=== PATIENT | male | born 1930 | race Caucasian/White ===

== ENCOUNTER → 2019-02-02 | Outpatient (CLI) | payer MEDICARE ==
[~2019-02-02] MED LIST: Coumadin7.5 MG; FINA5; FISH1000 PO; GLUCOSAMINE &1 EACH; MILK THISTLE200 MG PO; Multiple Vitam1 EAC1; TRAV.004OP RIGHTEYE; VITAMIN D5000 UNIT
== END | disposition home or self-care (01) ==
LOC: PLD 15:40 → LAB SHORT 15:40
DX: D48.5 Neoplasm of uncertain behavior of skin (principal)
CPT/HCPCS: 88305

== ENCOUNTER → 2019-03-12 | Outpatient (CLI) | payer MEDICARE ==
[2019-03-12 10:54] LABS: BASOPHILS ABSOLUTE AUTO 0.01 K/mm3 (0.00-0.23); BASOPHILS PERCENT AUTO 0 % (0-2); EOSINOPHILS ABSOLUTE AUTO 0.03 K/mm3 (0.00-0.68); EOSINOPHILS PERCENT AUTO 1 % (0-6); Hematocrit 40.1 % (37.0-53.0); IMMATURE GRAN ABSOLUTE AUTO 0.01 K/mm3 (0.00-0.10); IMMATURE GRAN PERCENT AUTO 0 % (0-1); LYMPHOCYTES ABSOLUTE AUTO 0.81 K/mm3 (0.84-5.20); LYMPHOCYTES PERCENT AUTO 19 % (21-46); MONOCYTES PERCENT AUTO 9 % (4-13); Mean Corpuscular HGB 34.5 pg (26.0-34.0); Mean Corpuscular HGB Conc 34.9 g/dL (31.5-36.5); Mean Corpuscular Volume 99 fL (80-100); Mean Platelet Volume 10.2 fL (9.1-12.4); NEUTROPHILS ABSOLUTE AUTO 3.06 K/mm3 (1.96-9.15); NEUTROPHILS PERCENT AUTO 71 % (41-73); Platelet Count 117 K/mm3 (150-400); RDW Coefficient Variation 14.4 % (11.7-14.2); RDW Standard Deviation 52.7 fL (35.1-46.3); Red Blood Cell Count 4.06 M/mm3 (4.30-5.90); White Blood Cell Count 4.32 K/mm3 (4.00-11.30)
[2019-03-12 11:04] LABS: Alanine Aminotransfer (ALT/SGP 44 U/L (12-78); Albumin, Blood 3.1 g/dL (3.4-5.0); Albumin/Globulin Ratio 0.8 (0.8-1.8); Alk Phos 83 U/L (40-126); Anion Gap 5 mmol/L (6-16); Aspartate Aminotrans (AST/SGOT 55 U/L (12-37); Bilirubin, Total 1.5 mg/dL (0.1-1.0); Blood Urea Nitrogen 28 mg/dL (8-24); Bun/Creatinine Ratio 29.2 (12.0-20.0); CO2, Blood 28 mmol/L (21-32); Calcium, Blood 9.1 mg/dL (8.5-10.1); Chloride, Blood 104 mmol/L (98-108); Creatinine, Blood 0.96 mg/dL (0.60-1.20); Globulin, Blood 3.8 g/dL (2.2-4.0); Glomerular Filtration Rate >60 (60-); Glucose, Blood 117 mg/dL (70-99); Potassium, Blood 4.7 mmol/L (3.5-5.5); Sodium, Blood 137 mmol/L (136-145); Total Protein, Blood 6.9 g/dL (6.4-8.2)
== END | disposition home or self-care (01) ==
LOC: LAB SHORT 10:45 → LAB EV 10:45
PROVIDERS: Physician Assistant
DX: R06.00 Dyspnea, unspecified (principal)
CPT/HCPCS: 80053; 83880; 85025

== ENCOUNTER 2020-01-17 14:18 | Inpatient (IN) | payer MEDICARE ==
[~2020-01-17] VITALS: Ht 182.9 cm; Wt 69.0 kg
[~2020-01-17 14:18] MED LIST changes: -Coumadin7.5 MG; -FINA5; +FINA5 PO; +WARF5 PO
[2020-01-17 14:38] LABS: BASOPHILS ABSOLUTE AUTO 0.01 K/mm3 (0.00-0.23); BASOPHILS PERCENT AUTO 0 % (0-2); EOSINOPHILS PERCENT AUTO 2 % (0-6); Hematocrit 44.4 % (37.0-53.0); Hemoglobin 14.9 g/dL (13.5-17.5); IMMATURE GRAN ABSOLUTE AUTO 0.01 K/mm3 (0.00-0.10); IMMATURE GRAN PERCENT AUTO 0 % (0-1); LYMPHOCYTES ABSOLUTE AUTO 0.77 K/mm3 (0.84-5.20); LYMPHOCYTES PERCENT AUTO 17 % (21-46); MONOCYTES ABSOLUTE AUTO 0.46 K/mm3 (0.16-1.47); MONOCYTES PERCENT AUTO 10 % (4-13); Mean Corpuscular HGB 33.9 pg (26.0-34.0); Mean Corpuscular HGB Conc 33.6 g/dL (31.5-36.5); Mean Corpuscular Volume 101 fL (80-100); Mean Platelet Volume 10.4 fL (9.1-12.4); NEUTROPHILS ABSOLUTE AUTO 3.13 K/mm3 (1.96-9.15); NEUTROPHILS PERCENT AUTO 70 % (41-73); Platelet Count 107 K/mm3 (150-400); RDW Coefficient Variation 15.4 % (11.7-14.2); RDW Standard Deviation 58.2 fL (35.1-46.3); Red Blood Cell Count 4.39 M/mm3 (4.30-5.90); White Blood Cell Count 4.48 K/mm3 (4.00-11.30)
[2020-01-17 15:03] LABS: Source, Urine Clean Catch
[2020-01-17 15:05] LABS: Bilirubin, Urine Neg (Neg); Blood, Urine Neg (Neg); Glucose Qualitative, Urine Neg (Neg); Ketones, Urine 1+ (Neg); Leukocyte Esterase, Urine 1+ (Neg); Nitrite, Urine Neg (Neg); Protein, Urine Neg (Neg); Specific Gravity, Urine 1.025 (1.003-1.022); Urobilinogen, Urine 2+ (Normal)
[2020-01-17 15:10] LABS: Appearance, Urine Clear (Clear); Color, Urine Yellow (P-Yellow)
[2020-01-17 15:10] LABS: Alanine Aminotransfer (ALT/SGP 52 U/L (12-78); Albumin, Blood 2.8 g/dL (3.4-5.0); Albumin/Globulin Ratio 0.7 (0.8-1.8); Alk Phos 91 U/L (50-136); Anion Gap 5 mmol/L (6-16); Aspartate Aminotrans (AST/SGOT 65 U/L (12-37); Bilirubin, Total 1.9 mg/dL (0.1-1.0); Blood Urea Nitrogen 26 mg/dL (8-24); Bun/Creatinine Ratio 28.8 (12.0-20.0); CO2, Blood 27 mmol/L (21-32); Calcium, Blood 8.5 mg/dL (8.5-10.1); Chloride, Blood 108 mmol/L (98-108); Globulin, Blood 3.9 g/dL (2.2-4.0); Glomerular Filtration Rate >60 (60-); Glucose, Blood 98 mg/dL (70-99); Potassium, Blood 4.3 mmol/L (3.5-5.5); Sodium, Blood 140 mmol/L (136-145); Total Protein, Blood 6.7 g/dL (6.4-8.2); Troponin I 0.019 ng/mL (0.000-0.040)
[2020-01-17 15:11] LABS: Mucus Heavy (0-Heavy)
[2020-01-17 15:13] LABS: Calcium Oxalate Crystals Mod /hpf
[2020-01-17 15:14] LABS: Red Blood Cells, Urine 0-2 /hpf (0-2)
[2020-01-17 15:28] LABS: Bacteria Few /hpf; Squamous Epithelial Cells Few /hpf (Few)
[2020-01-17] MEDS ORDERED: WARF5 PO (16:37)
[2020-01-17 16:44] LABS: International Normalized Ratio 2.02; Prothrombin Time Results 20.8 Sec (9.7-11.5)
--- NOTE | 2020-01-17 22:28 | NUR ---
ADMIT NOTE HANDOFF RECEIVED FROM ER NURSE DERECK. PT ARRIVED TO UNIT VIA WHEELCHAIR. PT ORIENTED TO UNIT. CALL BUTTON WITHIN REACH. BED ALARM ON.
--- NOTE | 2020-01-18 04:08 | NUR ---
SHIFT SUMMARY ADMITTED FROM THE ER THIS SHIFT FOR CHF EXACERBATION. FULL CODE. HE IS CALM, BUT SOMEWHAT CONFUSED. UNSTEADY ON HIS FEET, HE SHUFFLES. HE IS WEAK. FOUND TO HAVE A 34 LB WEIGHT LOSS IN THE PAST YEAR ACCORDING TO MEDICAL RECORDS, THE PT DENIED THIS TO ME. RA, CARDIAC DIET, ON WARFARIN -HX: AORTIC VALVE REPLACEMENT. BNP FOUND TO BE ELEVATED ON ADMIT TO 969, TROPONIN WAS NOT ELEVATED. CLASSIFIER REFERAL. HE SOMETIMES USES A FWW AT HOME. 1 ASSIST HERE. HX: BPH, HYPERLIPIDEMIA, JOE'S ESOPHAGUS, DEMENTIA, CHF, CHRONIC GAIT ATAXIA, AFIB, PALMA, ALZHEIMERS. NO NEARBY FAMILY. CALM & COOPERATIVE WITH CARE THIS SHIFT
[2020-01-18 05:22] LABS: BASOPHILS ABSOLUTE AUTO 0.01 K/mm3 (0.00-0.23); BASOPHILS PERCENT AUTO 0 % (0-2); EOSINOPHILS ABSOLUTE AUTO 0.18 K/mm3 (0.00-0.68); EOSINOPHILS PERCENT AUTO 5 % (0-6); Hematocrit 42.6 % (37.0-53.0); Hemoglobin 14.7 g/dL (13.5-17.5); IMMATURE GRAN ABSOLUTE AUTO 0.01 K/mm3 (0.00-0.10); IMMATURE GRAN PERCENT AUTO 0 % (0-1); LYMPHOCYTES ABSOLUTE AUTO 0.96 K/mm3 (0.84-5.20); LYMPHOCYTES PERCENT AUTO 25 % (21-46); MONOCYTES ABSOLUTE AUTO 0.47 K/mm3 (0.16-1.47); MONOCYTES PERCENT AUTO 12 % (4-13); Mean Corpuscular HGB 34.5 pg (26.0-34.0); Mean Corpuscular HGB Conc 34.5 g/dL (31.5-36.5); Mean Corpuscular Volume 100 fL (80-100); Mean Platelet Volume 11.4 fL (9.1-12.4); NEUTROPHILS PERCENT AUTO 57 % (41-73); Platelet Count 84 K/mm3 (150-400); RDW Coefficient Variation 15.4 % (11.7-14.2); RDW Standard Deviation 56.8 fL (35.1-46.3); Red Blood Cell Count 4.26 M/mm3 (4.30-5.90); White Blood Cell Count 3.83 K/mm3 (4.00-11.30)
[2020-01-18 05:43] LABS: International Normalized Ratio 2.3; Prothrombin Time Results 23.5 Sec (9.7-11.5)
[2020-01-18 06:19] LABS: Alanine Aminotransfer (ALT/SGP 48 U/L (12-78); Albumin, Blood 2.7 g/dL (3.4-5.0); Albumin/Globulin Ratio 0.7 (0.8-1.8); Alk Phos 86 U/L (50-136); Anion Gap 3 mmol/L (6-16); Aspartate Aminotrans (AST/SGOT 58 U/L (12-37); Bilirubin, Total 1.8 mg/dL (0.1-1.0); Blood Urea Nitrogen 23 mg/dL (8-24); Bun/Creatinine Ratio 26.1 (12.0-20.0); CO2, Blood 31 mmol/L (21-32); Calcium, Blood 8.4 mg/dL (8.5-10.1); Chloride, Blood 106 mmol/L (98-108); Creatinine, Blood 0.88 mg/dL (0.60-1.20); Globulin, Blood 3.9 g/dL (2.2-4.0); Glomerular Filtration Rate >60 (60-); Glucose, Blood 72 mg/dL (70-99); Potassium, Blood 4.5 mmol/L (3.5-5.5); Sodium, Blood 140 mmol/L (136-145); Total Protein, Blood 6.6 g/dL (6.4-8.2)
--- NOTE | 2020-01-18 11:52 | NUR ---
ECHOCARDIOGRAM COMPLETE
--- NOTE | 2020-01-18 18:15 | NUR ---
NO ACUTE CHANGES. PT CONFUSED BUT COMPLIANT WITH CARES.
--- NOTE | 2020-01-19 05:04 | NUR ---
SHIFT SUMMARY VSS. SLEPT WELL T/O NIGHT. AOX4-COULD ANSWER PLACE, DATE, SELF, PRESIDENT APPROPRIATE DURING ASSESSMENT. HOWEVER PT IS FORGETFUL & CONFUSED @TIMES, DOES NOT USE CALL LIGHT & SETS OFF BED ALARM FREQUENTLY. FOLLOWS DIRECTIONS. SLOW TO ANSWER TO QUESTIONS. DENIES PAIN OR NAUSEA. STATES HE'S HAD DYSPNEA FOR QUITE AWHILE "IT'S NOTHING NEW" & STATES IT'S WORSE W/EXERCISE, DENIES SOB @REST, E/U RESPIRATIONS, SPO2 >90%. HAS +2 BILAT PEDAL EDEMA. BLADDER SCANNED THIS AM PER ORDERS & 318ML IN BLADDER DENIED NEED TO URINATE, HOWEVER PT HAS BEEN UP 3-4 TIMES TO USE RESTROOM. CALL LIGHT IN REACH, WCTM.
[2020-01-19 05:16] LABS: International Normalized Ratio 2.66; Prothrombin Time Results 26.9 Sec (9.7-11.5)
--- NOTE | 2020-01-19 10:39 | NUR ---
WOUND CARE/SLIPPED IN BATHROOM. THIS RN COMPLETED WOUND CARE AFTER PT SLIPPED IN BATHROOM. PT SLIPPED AND HIT HEAD ON HANDLE BAR IN SHOWER. SKIN TEARS OCCURED TO BOTH FOREARMS. PICS TAKEN AND DRESSINGS PLACED. PT L FOOT 4TH TOE NAIL WAS PULLED SLIGHTLY AND STARTED BLEEDING. BANDAID PLACED TO TOE & PIC TAKEN. PT VITALS TAKEN AFTER EVENT. PRIMARY RNBRANDT NOTIFIED OF EVENT AND WOUND CARE THAT WAS COMPLETED. PT WAS OUTSIDE OF SHOWER BEING DRIED OFF AND THEN SLIPPED ONTO THE SHOWER CHAIR. PT AIDE WAS WITH PT DURING EVENT.
--- NOTE | 2020-01-19 11:16 | NUR ---
PT SLIPPED INTO SHOWER CHAIR THIS MORNING WHILE STAFF WAS SHOWERING PT . PICTURES TAKEN OF SKIN TEARS. STAFF LANDED ON CHAIR, NOT FLOOR. PT WAS CLEANED UP AND SKIN ISSUES ADDRESSED AND COVERED .DOCTOR WAS NOTIFIED . PT HAS NO COMPLAINTS AND CONTINUES TO ASK WHEN HE IS GOING HOME AND STATES HE IS ABLE TO TAKE CARE OF HIMSELF.
--- NOTE | 2020-01-19 11:36 | NUR ---
Around 1050 pt was standing up out of the shower and holing onto the walker. I was drying his legs off and he lost his balance. He went backwards and set hard into the shower chair. Nurse notified and vitals taken.
--- NOTE | 2020-01-19 12:16 | NUR ---
Spoke with Dr Nix prior to Pt visit and discussed case. Dr Nix is requesting Palliative Care to contact family to discuss code status and feels Pt is not appropriate to make decisions for himself. Pt sitting in chair upon arrival. Pt is A&OX3 and is unable to verbalize appropriate reason for hospital stay. Pt denies pain and dyspnea at this time. Engaged in therapeutic discusion regarding plan of care. Discussed notes and recommendations from PT. Pt insists that he is safe to live alone. Discussed incidents of falls including moste recent this AM. Pt reports fall was not his fault. Continued therapeutic listening as Pt focuses on wanting to go home. Discussed Advanced Directive on file and health care representatives listed. Pt reports the primary was his late and the alternate is a sister in law. He states he wants his sister Analisa to be his primary and Odalis can remain the alternate. Engaged in discussion regarding life sustaining measures including risk factors. Pt does not respond to discussion and changes subject stating "I just want to go home". As conversation continued it appeared Pt's level of undestaning was questionable. This RN ended visit. Spoke with Bedside RN Barbi and discussed case. Barbi also reports Pt's level of understanding is low and is not appropriate to make decisions. Called and spoke to Analisa who is listed as NOK. Analisa reports her and Odalis (Alternate on Pt's Advanced Directive) are Pt's step sisters. Listened as Analisa reports having discussions with family prior to this phone call with family feeling that Pt's cousin who is only living relative should be making decision. Analisa reports speaking with Pt's cousin Ranjana and she is willing to make decisions. Analisa reports alternate decision maker on AD Odalis is dealing with health problems. Plan is to discuss case with [place] Coordinator Seema to determine most appropriate plan for decision maker.
--- NOTE | 2020-01-19 17:15 | NUR ---
PT REMAINS VERY CONFUSED AND IS NOT ORIENTED TO HIS LIMITATIONS. HE OFTEN WILL GET UP AFTER BEING INSTURCTED TO USE CALL LIGHT. BED ALARM ON. HE IS VERY UNSTABLE ON HIS FEET AND SHOULD NOT BE ALLOWED TO AMBULATE WITHOUT ASSISTANCE. HE IS FRIENDLY, AND PLEASANTY CONFUSED. PT NEEDS SET UP WITH MEAL BUT WILL EAT ALL THAT IS INFRON OF HIM.
--- NOTE | 2020-01-19 18:11 | NUR ---
Spoke with [facility] Supervisor [employer] Seema and discussed case. Discussed family listed as NOK and as healthcare representatives on Advanced Directive. Healthcare representatives have elected to not make decisions for Pt due to being only step related and are defering to Pt's cousin Ranjana Ayala who is Pt's closest living relative. After discussion with Seema spoke with Pt and relayed step sisters request for Ranjana to be decision maker. Pt is agreeable. Called and spoke with Ranjana and updated her on Pt including reason for hospital stay, current condition and recommendations. Discussed code status and POLST. Educated Ranjana on life sustaining measures including risk factors and implications. Ranjana is agreeable to make decision regarding code status and completing POLST. Placed phone on speaker for Palliative Care RN Emma to witness. Discussed choices and educated on each choice. Ranjana chooses DNR for section A, and Limited Interventions for section B and feels this would be in the best interest of Pt. Answered questions and discussed plan of care. Ranjana request to be updated as well. Ranjana reports Pt was having discussions with his niece a few days prior to hospitalization regarding [facility]. No other concerns reported at this time. Ranjana's home phone # [phone], Called and left message with Dr Nix with family's request for Pt to be DNR. Spoke with Bedside CHELSEY Landon and relayed family's wishes for DNR. Barbi will call hospitalist if [facility] doctor does not change order. Plan is for MD to sign POLST and obtain copy for medical records. Palliative Care will remain available.
--- NOTE | 2020-01-19 18:38 | NUR ---
TALKED WITH JAMES IN PALLATIVE CARE, FAMILY MEMBER NORMA HAS DECISION MAKING RIGHTS AND WAS CONTACTED AND MADE PT DNR. DOCTOR ON FOR THE DAY WAS CONTACTED REGARDING THIS CHANGE BUT HAS NOT AT THIS TIME RESPONDED. NIGHT NURSE WILL BE NOTIFIED OF THIS AND HOSPITALIST WILL BE NOTIFIED DURING EXECUTIVE CHAIRMAN TO MAKE THIS CHANGE.
[2020-01-19] MEDS ORDERED: LOVAZA1 GM PO (21:45)
[2020-01-19] MEDS ORDERED: Daily Multiple1 EACH PO (21:45)
[2020-01-19] MEDS ORDERED: COENZYME Q-10 PO (21:46)
[2020-01-19] MEDS ORDERED: Prevacid Soluta30 MG PO (21:47)
[2020-01-19] MEDS ORDERED: FISH OIL PO (21:48)
[2020-01-19] MEDS ORDERED: GLUCOSAMINE CHONDROI PO (21:48)
[2020-01-20 05:06] LABS: International Normalized Ratio 2.68; Prothrombin Time Results 27.1 Sec (9.7-11.5)
--- NOTE | 2020-01-20 06:00 | NUR ---
SHIFT SUMMARY PT IS AN 89 Y/O MALE, ADMITTED FOR CHF EXACERBATION AND CURRENTLY AWAITING SAFE DISCHARGE PLACEMENT. PT IS A&O X 2-3, VERY FORGETFUL AND CONFUSED AT TIMES. PT IS 1PA UP, AND IMPULSIVE. NO COMPLAINTS OF PAIN, NAUSEA OR SOB. VITAL SIGNS STABLE. NO ACUTE CHANGES IN PT CONDITION NOTED. WILL CONTINUE TO MONITOR AND TREAT PER EMAR UNTIL HAND OFF TO DAY SHIFT RN.
--- NOTE | 2020-01-20 15:59 | NUR ---
SHIFT SUMMARY PT IS A/O X 3-4 WITH FORGETFULNESS. HE HAS NO C/O PAIN OR DISCOMFORT. EDEMA REMAINS TO EXTREMITIES AND LASIX HAS BEEN GIVEN ORDERED. PT HAS NO S/S OF ABNORMAL BLEEDING AND DENIES NAUSEA. PHARMACY CONTINUES TO DOSE COUMADIN AND HIS LAST INR WAS 2.68. PT HAS BEEN UP TO THE CHAIR FOR MEALS AND AMBULATES WITH A FWW AND GAIT BELT WITH X 1 ASSIST TO THE TOILET. HE IS ABLE TO MAKE HIS NEEDS KNOWN AND CALLS FOR HELP WHEN NEEDED. CALL LIGHT IS IN REACH.
--- NOTE | 2020-01-21 04:35 | NUR ---
SHIFT SUMMARY: 89 Y/O MALE RESTED COMFORTABLY ALL SHIFT; DENIES PAIN OR NAUSEA; ABLE TO AMBULATE BATHROOM AND BACK X 1 ASSIST VIA WALKER; BED ALARM APPLIED, BED LOW POSITION WITH CALL LIGHT AT SIDE.
[2020-01-21 05:01] LABS: International Normalized Ratio 2.96; Prothrombin Time Results 29.8 Sec (9.7-11.5)
[2020-01-21 05:10] LABS: Anion Gap 1 mmol/L (6-16); Blood Urea Nitrogen 22 mg/dL (8-24); Bun/Creatinine Ratio 22.1 (12.0-20.0); CO2, Blood 31 mmol/L (21-32); Calcium, Blood 8.7 mg/dL (8.5-10.1); Chloride, Blood 103 mmol/L (98-108); Creatinine, Blood 0.99 mg/dL (0.60-1.20); Glomerular Filtration Rate >60 (60-); Glucose, Blood 74 mg/dL (70-99); Potassium, Blood 4.2 mmol/L (3.5-5.5); Sodium, Blood 135 mmol/L (136-145)
--- NOTE | 2020-01-21 08:30 | NUR ---
PT PLEASAANT COOP A/O X3 SOME FORGETFULNESS NOTED IN RN HANDOFF. H/R IRREG. NO MURMER NOTED. NO TELE. LUNGS CLEAR, RESP EASY, UNLABORED. ON R/A. BT X4 LAST BM 2 DAYS. VOIDS CONT INCONT. IN ATTENDS, CLEAN DRY AT THIS TIME. BED IN LOW POSITION, CALL LITE IN REACH, BED ALARM ON FOR SAFETY
--- NOTE | 2020-01-21 16:37 | NUR ---
PT PLEASANT TODAY. DID WALK HALLS TODAY WITH PT/OT. HAS BEEN UP TO EAT MEALS. NO OTHER CONCERNS AT THIS TIME. BED IN LOW POSITION, CALL LITE IN REACH. CALLS APPROP. BED ALARM ON FOR SAFEY
--- NOTE | 2020-01-22 03:53 | NUR ---
SHIFT SUMMARY: 89 Y/O MALE RESTED COMFORTABLY ALL SHIFT; PT ABLE TO TRANSFER AND AMBULATE VIA WALKER TO BATHROOM AND BACK WITH GAIT SLOW AND STEADY X 1 STANDBY ASSIST; PT DENIES PAIN OR NAUSEA; ALERT AND ORIENTED X 2; ABLE TO FOLLOW ALL SIMPLE VERBAL COMMANDS; BED ALARM APPLIED, BED LOW POSITION WITH CALL LIGHT AT SIDE.
[2020-01-22 05:07] LABS: BASOPHILS ABSOLUTE AUTO 0.02 K/mm3 (0.00-0.23); BASOPHILS PERCENT AUTO 1 % (0-2); EOSINOPHILS ABSOLUTE AUTO 0.31 K/mm3 (0.00-0.68); EOSINOPHILS PERCENT AUTO 7 % (0-6); Hematocrit 40.7 % (37.0-53.0); Hemoglobin 13.8 g/dL (13.5-17.5); IMMATURE GRAN PERCENT AUTO 0 % (0-1); LYMPHOCYTES ABSOLUTE AUTO 0.95 K/mm3 (0.84-5.20); LYMPHOCYTES PERCENT AUTO 22 % (21-46); MONOCYTES ABSOLUTE AUTO 0.55 K/mm3 (0.16-1.47); MONOCYTES PERCENT AUTO 13 % (4-13); Mean Corpuscular HGB 33.7 pg (26.0-34.0); Mean Corpuscular HGB Conc 33.9 g/dL (31.5-36.5); Mean Corpuscular Volume 99 fL (80-100); Mean Platelet Volume 10.9 fL (9.1-12.4); NEUTROPHILS ABSOLUTE AUTO 2.51 K/mm3 (1.96-9.15); NEUTROPHILS PERCENT AUTO 58 % (41-73); Platelet Count 100 K/mm3 (150-400); RDW Coefficient Variation 14.8 % (11.7-14.2); RDW Standard Deviation 54.5 fL (35.1-46.3); White Blood Cell Count 4.34 K/mm3 (4.00-11.30)
[2020-01-22 05:18] LABS: International Normalized Ratio 2.59; Prothrombin Time Results 26.3 Sec (9.7-11.5)
--- NOTE | 2020-01-22 18:53 | NUR ---
SUMMARY- PT A/O X3, MILD CONFUSION. PT TOLERATES FOOD AND FLUID. LUNGS CLEAR, NO SOB. UP TO CHAIR FOR MEALS. AMBULATED IN ECKERT TO WINDOW OVER 100 FEET, SLOW AND STEADY WITH WALKER AND GAIT BELT, NO SOB. PT ON ROOM AIR. LE EDEMA +1. VSS. SKIN TEAR L ELBOW AND RW WITH BANDAGE INTACT. CAREGIVER KAYCEE CALLED AND GENERAL UPDATE GIVEN OVER THE PHONE.
--- NOTE | 2020-01-23 04:44 | NUR ---
SHIFT SUMMARY: 89 Y/O MALE RESTED COMFORTABLY IN BED ALL SHIFT; PT ABLE TO AMBULATE VIA WALKER TO BATHROOM WITH GAIT SLOW AND STEADY; WEARING YELLOW FALL GOWN; ALERT AND ORIENTED X 2 AND ABLE TO FOLLOW ALL SIMPLE VERBAL COMMANDS; BED ALARM APPLIED; BED LOW POSITION WITH CALL LIGHT AT SIDE.
[2020-01-23 04:51] LABS: International Normalized Ratio 2.03; Prothrombin Time Results 20.9 Sec (9.7-11.5)
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
--- NOTE | 2020-01-23 19:43 | NUR ---
NO POWERGLIDE IN PT'S ARM, UNAWARE OF DC DATE.
[2020-01-24 04:30] LABS: International Normalized Ratio 2.13; Prothrombin Time Results 21.8 Sec (9.7-11.5)
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
--- NOTE | 2020-01-24 17:59 | NUR ---
SHIFT SUMMARY PT HAS BEEN SLEEPING A LOT OF THE SHIFT. PT UP OOB OFTEN. AMBULATES TO BATHROOM WITH FWW/GAIT BELT. PT ORIENTED X3 BUT IS VERY FORGETFUL AND CONFUSED AT TIMES. NO COMPLAINTS OF PAIN. NO ACUTE CHANGES THIS SHIFT. WAITING FOR PLACEMENT. CALL LIGHT IN REACH AND BED ALARM ON FOR SAFETY. WILL CONTINUE TO MONITOR AND REPORT TO ONCOMING RN.
--- NOTE | 2020-01-25 05:19 | NUR ---
Rn summary: Patient has rested well tonight. He has only gotten up to the BR x1. Pt is up with one assist and a walker. Has a shuffling gait. A/o x2. Pt is stable medically. Awaiting safe placement. Call light in reach but does not usually use it, bed alarm is on. Freq monitoring.
[2020-01-25 08:44] LABS: International Normalized Ratio 2.06; Prothrombin Time Results 21.2 Sec (9.7-11.5)
--- NOTE | 2020-01-25 16:45 | NUR ---
Initial spiritual care note: Mr. Sidhu said very little to me. He used one or two word answers and did not engage in conversation. He was fumbling with his lunch tray and I stayed with him while he ate. He never did look at me, but appeared to benefit from help opening items on tray and helping him feed himself. He seems well cared-for by nursing and denied concerns. He did allow [facility]. I will remain available.
--- NOTE | 2020-01-25 18:03 | NUR ---
SHIFT SUMMARY PT HAS HAD NO COMPLAINTS AT THIS TIME. PT AMBULATED IN ECKERT WITH OT/PT THIS AM. PT TOOK SHOWER THIS AFTERNOON AND HAS BEEN SLEEPING MOST OF THE AFTERNOON. PT HAS GOOD APPETITE AND EATING MEALS WITH SNACKS. NO CHANGES THIS SHIFT. CALL LIGHT IN REACH. BED ALARM ON FOR SAFETY. WILL CONTINUE TO MONITOR AND REPORT TO ONCOMING RN.
--- NOTE | 2020-01-26 04:12 | NUR ---
SUMMARY: PT A/OX3 BUT FORGETFULL AT TIMES SO BED ALARM ON FOR SAFETY. PT USES FWW AND GAIT BELT OOB. HE SLEPT MAJORITY OF NOCTE AND REPOSITIONS SELF IN BED. HE USED URINAL W/ASSIST AND WAS INCONTINENT X2 WHILE SLEEPING, ATTENDS AND LINEN CHANGED PRN. HE'S DENIED PAIN/COMPLAINTS AND IS PLEASANT AND COOPERATIVE W/CARE. NO ACUTE CHANGES, VSS/AFEBRILE. PLACMENT PENDING. WCTM AND REPORT TO DAY RN.
[2020-01-26 04:43] LABS: International Normalized Ratio 2.15
--- NOTE | 2020-01-26 15:45 | NUR ---
ASSISTED PT. INTO BATHROOM WITH FWW, GAIT BELT HAD A SMALL BM.
--- NOTE | 2020-01-26 18:46 | NUR ---
PT. BACK IN BED AFTER BEING UP FOR DINNER. DOES NOT USE CALL LIGHT, BED ALARM KEPT IN PLACE. PT. HAS HAD 2 SMALLL BM'S AND A MODERATE SIZED BM. GUARDIANSHIP ESTABLISHED TODAY.
[2020-01-27 04:49] LABS: International Normalized Ratio 2.1; Prothrombin Time Results 21.5 Sec (9.7-11.5)
[2020-01-27 04:58] LABS: Anion Gap 3 mmol/L (6-16); Blood Urea Nitrogen 29 mg/dL (8-24); Bun/Creatinine Ratio 31.5 (12.0-20.0); CO2, Blood 30 mmol/L (21-32); Calcium, Blood 8.2 mg/dL (8.5-10.1); Chloride, Blood 100 mmol/L (98-108); Creatinine, Blood 0.92 mg/dL (0.60-1.20); Glomerular Filtration Rate >60 (60-); Glucose, Blood 78 mg/dL (70-99); Sodium, Blood 133 mmol/L (136-145)
--- NOTE | 2020-01-27 06:41 | NUR ---
SHIFT SUMMARY PATIENT ALERT AND ORIENTED. FORGOT A COUPLE TIMES TO USE THE CALL LIGHT BEFORE ATTEMPTING TO GET UP TO THE BATHROOM. RESTED IN BED THE REST OF THE TIME. BED IN LOWEST POSITION WITH WHEELS LOCKED AND ALARM ON. CALL LIGHT WITHIN REACH. REPORT GIVEN TO ONCOMING RN.
--- NOTE | 2020-01-27 19:00 | NUR ---
NO NOTEABLE CHANGES THIS SHIFT, STILL WAITING FOR PLACEMENT. HAS BEEN UP FOR ALL MEALS,
[2020-01-28 05:26] LABS: International Normalized Ratio 2.03; Prothrombin Time Results 20.9 Sec (9.7-11.5)
--- NOTE | 2020-01-28 07:25 | NUR ---
SHIFT SUMMARY PATIENT ALERT AND ORIENTED ASIDE FROM FORGETTING TO USE HIS CALL LIGHT BEFORE ATTEMPTING TO GET UP TO USE THE BATHROOM OVERNIGHT. PATIENT SLEPT WELL. BED IN LOWEST POSITION WITH WHEELS LOCKED AND ALARM ON. CALL LIGHT WITHIN REACH. REPORT GIVEN TO ONCOMING RN.
--- NOTE | 2020-01-28 18:21 | NUR ---
NO ACUTE CHANGES THIS SHIFT. AWAITING GUARDIANSHIP AND PLACEMENT. VERY IMPULSIVE, FALL PRECAUTIONS IN PLACE PER UNIT PROTOCOL. NO IV SITE. DENIES ANY PAIN OR DISCOFORT. TOLERATING CARDIAC DIET.
--- NOTE | 2020-01-29 04:57 | NUR ---
SHIFT SUMMARY: VSS. AFEB. A/O X2-3. FORGETFUL AND IMPULSIVE WHEN NEEDING TO USE THE BATHROOM. AMB W/ SBA AND FWW. NO REPORTS OF LIGHTHEADEDNESS OR DIZZINESS. BED LOW, BED ALARM ON. NO ACUTE CHANGES. TONIGHT. WILL CONT TO MONITOR.
[2020-01-29 05:33] LABS: International Normalized Ratio 1.97; Prothrombin Time Results 20.3 Sec (9.7-11.5)
[2020-01-29 05:38] LABS: Alanine Aminotransfer (ALT/SGP 56 U/L (12-78); Albumin, Blood 2.4 g/dL (3.4-5.0); Albumin/Globulin Ratio 0.6 (0.8-1.8); Alk Phos 114 U/L (50-136); Anion Gap 3 mmol/L (6-16); Aspartate Aminotrans (AST/SGOT 71 U/L (12-37); Bilirubin, Total 1.2 mg/dL (0.1-1.0); Blood Urea Nitrogen 27 mg/dL (8-24); Bun/Creatinine Ratio 29.1 (12.0-20.0); CO2, Blood 31 mmol/L (21-32); Calcium, Blood 8.2 mg/dL (8.5-10.1); Chloride, Blood 102 mmol/L (98-108); Creatinine, Blood 0.93 mg/dL (0.60-1.20); Globulin, Blood 4.2 g/dL (2.2-4.0); Glomerular Filtration Rate >60 (60-); Glucose, Blood 71 mg/dL (70-99); Magnesium, Blood 2.1 mg/dL (1.6-2.4); Potassium, Blood 4.3 mmol/L (3.5-5.5); Sodium, Blood 136 mmol/L (136-145); Total Protein, Blood 6.6 g/dL (6.4-8.2)
--- NOTE | 2020-01-29 16:16 | NUR ---
NO ACUTE CHANGES THIS SHIFT. PATIENT AWAITING GUARDIANSHIP AND PLACEMENT.
[2020-01-30 05:15] LABS: International Normalized Ratio 2.01; Prothrombin Time Results 20.7 Sec (9.7-11.5)
--- NOTE | 2020-01-30 05:25 | NUR ---
SHIFT SUMMARY: VSS. AFEB. A/OX3 W/ SOME CONFUSION. FORGETFUL ABOUT LIMITATIONS AND IMPULSIVE W/TOILETING. PT SETS BED ALARM OFF IN ATTEMPT TO SELF AMB EACH TIME HE NEEDS TO USE THE BATHROOM. REDIRECTS EASILY. BED LOW, ALARM ON. NO C/O PAIN TONIGHT. NO ACUTE CHANGES. WILL CONT TO MONITOR.
--- NOTE | 2020-01-30 17:41 | NUR ---
NO ACUTE CHANGES THIS SHIFT. AWAITING PLACEMENT.
--- NOTE | 2020-01-31 05:07 | NUR ---
SHIFT SUMMARY- PT. PLEASANTLY CONFUSED. COOPERATIVE WITH CARE. PT. SLEPT WELL T/O THE NIGHT. NO APPARENT DISTRESS NOTED. PT. UP W/WALKER AND SBA TO BATHROOM. VSS. NO ACUTE CHANGES TO CONDITION. PT. AWAITING PLACEMENT. CALL LIGHT WITHIN REACH, SIDE RAILS UP X2, AND BED ALARM ON. WILL CONT TO MONITOR.
[2020-01-31 05:10] LABS: International Normalized Ratio 2.39; Prothrombin Time Results 24.3 Sec (9.7-11.5)
--- NOTE | 2020-01-31 19:02 | NUR ---
SHIFT SUMMARY. ALERT, ORINETATED TO PLACE, SELF, AND YEAR. PLEASANT AND COOPERATIVE WITH CARE. PT DENIES PAIN, SOB, N/V. PT IS IMPULSIVE AND HIGH FALL RISK, BED AND CHAIR ALARM UTILIZED. PT PARTICIPATED WITH PT/OT AND TOLERATED WELL. NO NEW CHYANGES OR CONCERNS.
[2020-02-01 05:15] LABS: International Normalized Ratio 2.7; Prothrombin Time Results 27.3 Sec (9.7-11.5)
--- NOTE | 2020-02-01 05:24 | NUR ---
SHIFT SUMMARY- NO ACUTE CHANGES OVERNIGHT. PT. ASLEEP T/O MOST OF THE NIGHT. NO APPARENT DISTRESS NOTED. PT. IS PLEASANTLY CONFUSED AND IMPULSIVE AT TIMES. SHUFFLED GAIT, HIGH FALL RISK. DENIED ANY C/O PAIN OR DISCOMFORT THIS SHIFT. CALL LIGHT WITHIN REACH, SIDE RAILS UP X3, AND BED ALARM ON. WILL CONT TO MONITOR.
--- NOTE | 2020-02-01 18:43 | NUR ---
SHIFT SUMMARY. PT PLEASANT AND COOPERATIVE WITH CARE. A&OX3, WITH INTERMITTENT CONFUSION AND FORGETFULLNESS. BED AND CHAIR ALARM UTILIZED FOR SAFETY. PT DENIES PAIN, SOB, N/V. GOOD MEAL INTAKE. PARTICIPATED WITH PT/OT AND TOLERATED WELL. NO NEW CHANGES OR CONCERNS.
[2020-02-02 05:07] LABS: International Normalized Ratio 3.01; Prothrombin Time Results 30.3 Sec (9.7-11.5)
[2020-02-02 05:22] LABS: Anion Gap 3 mmol/L (6-16); Blood Urea Nitrogen 18 mg/dL (8-24); Bun/Creatinine Ratio 20.9 (12.0-20.0); CO2, Blood 29 mmol/L (21-32); Calcium, Blood 8.5 mg/dL (8.5-10.1); Chloride, Blood 103 mmol/L (98-108); Creatinine, Blood 0.86 mg/dL (0.60-1.20); Glomerular Filtration Rate >60 (60-); Glucose, Blood 68 mg/dL (70-99); Potassium, Blood 4.8 mmol/L (3.5-5.5); Sodium, Blood 135 mmol/L (136-145)
--- NOTE | 2020-02-02 05:55 | NUR ---
SHIFT SUMMARY- NO ACUTE CHANGES OVERNIGHT. PT. ASLEEP T/O THE NIGHT, NO APPARENT DISTRESS NOTED. PT. PLEASANTLY CONFUSED, COOPERATIVE WITH CARE. DENIED ANY PAIN OR DISCOMFORT. CALL LIGHT WITHIN REACH, SIDE RAILS UP X2, AND BED ALARM ON. WILL CONT TO MONITOR.
--- NOTE | 2020-02-02 17:31 | NUR ---
SUMMARY PT SITTING UP IN THE CHAIR AT THE BEDSIDE, PT HAS REMAINED PLEASANTLY CONFUSED, IMPULSIVE, BED ALARM ON FOR SAFETY, PT OCC USES HIS CALL LIGHT, VSS, NO ACUTE CHANGES, WILL CONT TO MONITOR
--- NOTE | 2020-02-02 19:30 | NUR ---
ASSUMED CARE. PATIENT GETTING UP FROM BED, BED ALARM IS SOUNDING, AND HE IS FOUND STANDING TRYING TO TURN OFF THE CHAIR ALARM. HE APPARENTLY DOES TURN OFF THE CHAIR ALARM WHEN HE SETS IT OFF. HE IS STEADY ON HIS FEET USING THE WALL AND FURNITURE TO MOVE ABOUT. HE DID NOT WANT TO USE THE WALKER. HE WENT TO THE BATHROOM AND BACK TO BED. LUNG SOUNDS CLEAR, NO EDEMA NOTED. HR IRREGULAR, DENIES ANY CARDIAC SYMPTOMS. PLACED BED ALARM BACK ON. WILL CONTINUE TO MONITOR.
--- NOTE | 2020-02-02 23:27 | NUR ---
PAIGE IS ASLEEP IN BED, NO SIGNS OF DISTRESS. BED ALARM IS ON. CALL LIGHT IN REACH.
--- NOTE | 2020-02-03 00:46 | NUR ---
PAIGE WAS TAKING OFF HIS CLOTHES. THEY WERE WET. ATTENDS WAS SATURATED. CHANGED ATTENDS, GAVE NEW CLOTHING, COVERED HIM UP TO PUT HIM BACK ASLEEP.
--- NOTE | 2020-02-03 03:03 | NUR ---
PAIGE IS BACK TO SLEEP, COVERED HIM UP THE COVERS WERE OFF. CALL LIGHT IN REACH.
[2020-02-03 06:02] LABS: Prothrombin Time Results 30.2 Sec (9.7-11.5)
--- NOTE | 2020-02-03 06:16 | NUR ---
SHIFT SUMMARY: PAIGE HAS BEEN ALERT AND ORIENTED TO SELF AND PLACE. HE HAS REMAINED IMPULSIVE GETTING UP SETTING OFF ALARMS. HE DOES TURN OFF THE CHAIR ALARM. HE HAS NOT HAD ANY ACUTE CHANGES THIS SHIFT, SLEEPING MOST OF THE SHIFT. INCONTINET/CONTIENT. FOLLOWS DIRECTOINS. NO EDEMA, LUNG SOUNDS CLEAR. NO SOB. VS HAVE BEEN WNL. NO MEDS GIVEN THIS SHIFT. BED ALARM HAS REMAINED ON, AND CALL LIGHT IN REACH.
--- NOTE | 2020-02-03 17:02 | NUR ---
SUMMARY PT RESTING QUIETLY IN BED, WAKES EASILY, PT HAS REMAINED PLEASANTLY CONFUSED T/O THE DAY, DOES NOT USE HIS CALL LIGHT, BED ALARM ON FOR SAFETY, NO ACUTE CHANGES, WILL CONT TO MONITOR
--- NOTE | 2020-02-03 19:45 | NUR ---
ASSUMED CARE. PAIGE WAS LAYING IN BED. BED ALARM ON. DENIES ANY CHANGES TODAY. WAS ABLE TO STATE ORIENTATION X4 BUT DOES HAVE PERIODS OF CONFUSION THAT IS OFF AND ON. FOLLOWS INSTRUCTIONS WITH NO PROBLEMS. GETS UP WITH SBA AND WALKER TO BATHROOM. SKIN DRY. ATTENDS DRY. CALL LIGHT IN REACH. WILL CONTINUE TO MONITOR.
--- NOTE | 2020-02-03 21:55 | NUR ---
PAIGE IS AWAKE LAYING IN BED, WATCHING TV. BED ALARM IS ON. DENIES ANY NEEDS.
--- NOTE | 2020-02-03 23:10 | NUR ---
PAIGE IS ASLEEP IN BED, NO SIGN OF DISTRESS.BED ALARM IS ON AND CALL LIGHT IN REACH.
--- NOTE | 2020-02-04 03:19 | NUR ---
PAIGE GOT UP TO USE THE BATHROOM, ATTENDS CHANGED. LINEN CHANGED. GOWN CHANGED. GOT HIM BACK TO BED. BED ALARM BACK ON.
[2020-02-04 05:08] LABS: International Normalized Ratio 2.13; Prothrombin Time Results 21.8 Sec (9.7-11.5)
--- NOTE | 2020-02-04 05:20 | NUR ---
SHIFT SUMMARY: PAIGE DID WELL TONIGHT HE WAS ORIENTED X3 WITH STILL CONFUSION THE NIGHT WENT ON. HE WENT TO BED EARLY AND HAS SLEPT GOOD ALL NIGHT. ONLY GETTING UP A COUPLE TIMES SETTING OFF HIS ALARM TO USE THE BATHROOM. VS WNL, AFEBRILE. NO ACUTE CHANGES THIS SHIFT. WILL CONTINUE TO PROVIDE CARE TILL DAY SHIFT ARRIVES.
--- NOTE | 2020-02-04 16:50 | NUR ---
SHIFT SUMMARY PATIENT DENIES PAIN, NAUSEA, AND SHORTNESS OF BREATH. PATIENT UP INDEPENDENT IN ROOM WITH FREQUENT ROUNDING. PATIETN EATING AND DRINKING WELL. PATIENT DISCHARGE AND PLACEMENT PENDING POWER OF PRESCHOOL DISABILITY TEACHER OR GUARDIANSHIP. CALL LIGHT IN REACH.
--- NOTE | 2020-02-04 19:25 | NUR ---
ASSUMED CARE. PAIGE IS UP IN HIS ROOM WONDERING AROUND. FOUND IN THE BATHROOM TRYING TO PULL THE TOILET PAPER OFF THE WALL. THEN WE WENT TO THE OTHER WALL IN ROOM AND WAS READING A SIGN. ASKING FOR COFFEE. INFORMED HIM HE HAD ENOUGH COFFEE IT IS GETTING NIGHT TIME. HE REFUSED WATER BUT GOT HIM TO TAKE SOME APPLEJUICE. THEN I GOT HIM SOME WORD PUZZLES WHICH HE SAT DOWN AND STARTED TO DO. HOPEFULLY THIS WILL KEEP HIM BUSY. CAMERA ON. CALL LIGHT IN REACH. WILL CONTINUE TO MONITOR.
--- NOTE | 2020-02-04 22:50 | NUR ---
PAIGE WAS DONE DOING HIS PUZZLES, HE WAS UP ASKING FOR MORE COFFEE. GAVE HIM DECAF AND TOLD HIM THAT WAS THE LAST HE WILL GET FOR THE NIGHT. HE WAS TRYING TO CLOSE THE DOOR. TOLD HIM WE HAVE TO KEEP IT OPEN. CHANGED HIS ATTENDS. GOT HIM IN BED. THEN THE BED WOULD NOT LAY DOWN BUT WOULD GO UP. ATTEMPTED SEVERAL TIMES AND COULD NOT GET IT TO WORK. CALLED FOR PAM TO COME UP.
--- NOTE | 2020-02-04 23:09 | NUR ---
PAIGE FINALLY GOT THE BED TO WORK AND LAID IT DOWN. TURNED OFF THE LIGHTS AND TUCKED HIM IN TO SLEEP. CALL LIGHT GIVEN. WILL CONTINUE TO MONITOR.
--- NOTE | 2020-02-05 03:30 | NUR ---
ASSUMED CARE RECEIVED REPORT FROM CHELSEY RODRIGUEZ. TOOK OVER CARE OF PT. SLEEPING AT THIS TIME, NO S/S ACUTE DISTRESS NOTED. RESPIRATIONS EVEN AND UNLABORED. CALL LIGHT, POSSESSIONS IN REACH, BED IN LOWEST POSITION. WILL CONTINUE TO MONITOR.
--- NOTE | 2020-02-05 05:24 | NUR ---
0524 RN NOTIFIED BY REMOTE MONITORING OF PT ATTEMPTING TO GET OOB. RN IN ROOM RE-DIRECTING PT BACK TO BED. WILL CONTINUE TO MONITOR.
[2020-02-05 05:30] LABS: International Normalized Ratio 1.68; Prothrombin Time Results 17.5 Sec (9.7-11.5)
--- NOTE | 2020-02-05 06:44 | NUR ---
SHIFT SUMMARY PT FOUND DANGLING AT EDGE OF BED, REMOVING GOWN AND WANTING TO EXIT BED, STATING HE WAS COLD. ASSISTED PT TO PUT GOWN BACK ON, AND RE-DIRECTED BACK TO BED. WARM BLANKET PROVIDED. PT REMAINS IN BED AT THIS TIME, NO S/S ACUTE DISTRESS NOTED. NO ACUTE CHANGES FROM SHIFT ASSESSMENT NOTED. DENIES NEEDS AT THIS TIME. CALL LIGHT, POSSESSIONS IN REACH, BED IN LOWEST POSITION WITH ALARM ON. WILL CONTINUE TO MONITOR UNTIL DAY RN ASSUMES CARE.
--- NOTE | 2020-02-05 16:21 | NUR ---
PATIENT DID FALL TODAY. HIS FALL RISK WAS HIGH, BUT PATIENT HAS ON HIS BOARD TO WALK THE HALLS 3 TIMES A DAY. HE WAS ASSISTED WITH HIS WALKER. PATIENT DID HIT THE FLOOR, DENIES JOINT PAIN. HE REPORTED HEAD PAIN AND HAD A HEAD CT WHICH CAN BE SEEN IN THE CHART. DOCTOR HAD BEEN NOTIFED. TIMELINE OF EVENTS IS FOLLOWS. 1500- PATIENT OUT FOR A WALK, TURNING BACK TOWARDS HIS ROOM AND FELL. UNSURE WHAT MADE THE PATIENT FALL. ASSISSTED AT THE TIME USING HIS WALKER AND DID MAKE CONTACT WITH THE GROUND ALTHOUGH HE DID HAVE ASSISTANCE FROM STAFF. WITNESSED BY BOTH NURSES AND AIDES IN THE SCU. ALL WOUNDS WERE DRESSED HE DID OBTAIN 4 SKIN TEARS HIS L HAND. MEPITEL ONE DRESSINGS IN PLACE. 1515- DOCTOR WAS NOTIFIED OF THE FALL. PATIENT THEN HAD A SECOND NEUROLOGICAL ASSESSMENT. PUPILS ARE REACTIVE EQUAL AND ROUND. PATIENT IS PLEASANT BUT NOTES MILD HEADACHE. 1520- DOCTOR WAS NOTIFIED OF HIS HEADACHE AND STAT HEAD CT WAS ORDERED AND DONE. RESULTS IN THE CHART. 1630- DOCTOR CALLED TO VERIFY THAT RESULTS WERE SEEN. PATIENT STILL MONITORED CLOSELY. BED ALARM IS ON. PATIENT IS ON THE CAMERAS.
--- NOTE | 2020-02-05 18:27 | NUR ---
SHIFT SUMMARY PATIENT IS PLEASANT BUT CONFUSED. HE HAD A FALL TODAY. HE HAD A STAT CT. RESULTS IN THE CHART. SINCE THEN HE HAS BEEN PLEASANT AND COOPERATIVE. HE UNDERSTANDS WHO HE IS.
--- NOTE | 2020-02-05 21:30 | NUR ---
2130 PT ATTEMPTING TO EXIT BED MULTIPLE TIMES, S/P FALL TODAY DURING DAY SHIFT. SPOKE TO MAME UMANA REGARDING PT BEING HIGH FALL RISK AND NEED FOR RESTRAINTS. ORDERS ENTERED INTO Conversion Sound.
--- NOTE | 2020-02-06 00:15 | NUR ---
0015 RN IN ROOM ASSISTING PT TO USE URINAL, REPOSITION SELF IN BED. PT STATING "I NEED TO GET OUT OF HERE. LOOSEN UP THE VEST, IT'S TOO TIGHT, I CAN'T MOVE." VEST FASTENED APPROPRIATELY TO ALLOW EASE OF BREATHING AND REPOSITIONING, REMINDED PT THAT VEST IS ON TO KEEP HIM FROM FALLING AGAIN WHILE IN THE HOSPITAL, AND THAT IT IS TIME FOR SLEEP. RE-DIRECTABLE. BED IN LOWEST POSITION, CALL LIGHT IN REACH, ALARMS ON. WILL CONTINUE TO MONITOR.
--- NOTE | 2020-02-06 04:49 | NUR ---
SHIFT SUMMARY PT HAD A ROUGH NIGHT, WAS INCREASINGLY AGITATED, INSISTING UPON EXITING BED AND NEEDING TO GET UP. REMINDED PT OF NEED TO MAINTAIN SAFETY R/T RECENT FALL. EASILY RE-DIRECTABLE. ASLEEP AT THIS TIME, COMFORTABLE. CALL LIGHT, POSSESSIONS IN REACH, BED IN LOWEST POSITION WITH ALARM ON, WILL CONTINUE TO MONITOR UNTIL DAY RN ASSUMES CARE.
[2020-02-06 07:54] LABS: International Normalized Ratio 1.57; Prothrombin Time Results 16.4 Sec (9.7-11.5)
--- NOTE | 2020-02-06 16:06 | NUR ---
PATIENT CONTINUES TO BE A BED JUMPER AND IS ABLE TO UNTIE THE PEREZ VEST FAIRLY EASILY. HE NEEDS EXTRA CLOSE SUPERVISION FOR SAFETY. ALERT AND ORIENTED BUT VERY FORGETFUL. NO COMPLAINTS OF PAIN OR DISCOMFORT. VITALS HAVE BEEN STABLE. NO OTHER ACUTE CHANGES NOTED THIS SHIFT.
[2020-02-07 05:25] LABS: International Normalized Ratio 1.66; Prothrombin Time Results 17.3 Sec (9.7-11.5)
--- NOTE | 2020-02-07 05:40 | NUR ---
SHIFT SUMMARY- PT. CONFUSED AND IMPULSIVE. VEST RESTRAINT ON PER ORDER. PT. HAD NO ACUTE CHANGES DURING THE NIGHT. ATTEMPTED FEW TIMES TO GET OOB W/O ASSISTANCE, PT. NOT DIRECTABLE, AND HIGH FALL RISK. PT. APPEARS TO BE RESTING COMFORTABLY IN BED. NO APPARENT DISTRESS NOTED. CALL LIGHT WITHIN REACH, SIDE RAILS UP X3, AND BED ALARM ON FOR SAFETY. WILL CONT TO MONITOR.
--- NOTE | 2020-02-07 17:36 | NUR ---
SHIFT SUMMARY- PT IS ALERT AND PLESANT. HE AMBULATED TO THE RESTROOM. HIS LUNG SOUNDS WERE CLEAR THIS MORNING AND LATER SOUNDED COURSE. SPOKE WITH DR. SHEPHERD ORDERED A RADIOGRAPH. REMOVED RESTRAINTS AND PT IS ON A BED ALARM. HIS APPETITE IS POOR.
--- NOTE | 2020-02-07 17:39 | NUR ---
SHIFT SUMMARY- PT IS A/O, PLESANT AND COOPERATIVE. HE IS AMBULATING WITH ASSISTANCE TO THE RESTROOM. PT REQUEST TO GO HOME, HE REQUIRES 24 HOUR CARE. PT LIVES WITH HIS FRIEND NORMA AND HIS , I SPOKE WITH NORMA ON THE PHONE ABOUT THE CONCERNS ABOUT THE PT HAVING SOMEONE WITH HIM AT ALL TIMES. HE SAID THAT EITHER HIM OR HIS WERE THERE WITH HIM AND THEY WERE READY FOR HIM TO COME HOME. RELAYED THIS INFORMATION TO LEAFLET DISTRIBUTOR AND . HE IS EATING AND DRINKING WELL.
--- NOTE | 2020-02-07 20:27 | NUR ---
verified remote camera monitoring with GUSTAVO Kincaid.
[2020-02-08 05:55] LABS: International Normalized Ratio 1.6; Prothrombin Time Results 16.7 Sec (9.7-11.5)
--- NOTE | 2020-02-08 06:10 | NUR ---
SHIFT SUMMARY- PT. SLEPT T/O THE NIGHT. NO APPARENT DISTRESS NOTED. PT. NOTED TO HAVE OCCASIONAL COUGH AND COARSE LUNG SOUNDS. CXR ORDERED. PT. IS ALERT W/INTERMITTENT CONFUSION AND PENDING PLACEMENT. CALL LIGHT WITHIN REACH, SIDE RAILS UP X3, AND BED ALARM ON. WILL CONT TO MONITOR.
--- NOTE | 2020-02-08 20:15 | NUR ---
SHIFT SUMMARY PT UP IN CHAIR FOR BREAKFAST AND DINNER. 1 PERSON ASSIST WITH AMBULATING. HAS DENIED PAIN OR RESP DISTRESS TODAY.
--- NOTE | 2020-02-09 04:52 | NUR ---
SHIFT SUMMARY HAS BEEN RESTING QUIETLY WITH FEW INTERRUPTIONS THIS SHIFT. CALL LIGHT IN REACH. SAFETY MAINTAINED.
--- NOTE | 2020-02-09 19:50 | NUR ---
SHIFT SUMMARY: NO ACUTE CHANGES TO REPORT THIS SHIFT. 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 HX FALLS; L WRIST SKIN TEAR; DRESSING C/D/I. ASPIRATION PRECAUTIONS. PT UP c 1-ASSIST & FWW TO BATHROOM. AWAITING GUARDIANSHIP & PLACEMENT. REPORT GIVEN TO ONCOMING RN.
--- NOTE | 2020-02-10 06:17 | NUR ---
PACKING MACHINE CAN FEEDER SUMMARY PT SLEPT OFF AND ON THROUGHOUT THE NIGHT. PT TRIED TO GET OUT OF BED MULTIPLE TIMES TONIGHT. PT REMINDED FREQUENTLY TO USE CALL LIGHT BEFORE GETTING UP. PT HAS OCCASIONAL CONFUSION. BED ALARM ON. DENIES PAIN, SOB, NAUSEA. VSS.
[2020-02-10 17:21] LABS: International Normalized Ratio 2.01; Prothrombin Time Results 20.7 Sec (9.7-11.5)
--- NOTE | 2020-02-10 17:43 | NUR ---
PT AOX2 AND COOPERATIVE OF CARE. PT DENIED ANY PAIN AND HAS BEEN UP IN CHAIR FOR MEALS. PT USES FRONTWHEEL WALKER TO AMBULATE. NO DISTRESS NOTED WILL CONTINUE TO MONITOR. PT IS CONTINENT/ INCONTINENT.
[2020-02-11 05:25] LABS: International Normalized Ratio 1.92; Prothrombin Time Results 19.8 Sec (9.7-11.5)
--- NOTE | 2020-02-11 06:16 | NUR ---
SHIFT SUMMARY A/O, ABLE TO MAKE NEEDS KNOWN. FORGETFUL AT TIMES. IMPULSIVE. UP WITH SBA AND FWW TO BATHROOM; GAIT STEADY YET SHUFFLES FEET. NO C/O PAIN/DISCOMFORT. APPEARED TO REST WELL OFF AND ON DURING NIGHT. VSS/AFEBRILE. NO ACUTE CHANGES NOTED. BED IN LOWEST POSITION. CALL LIGHT WITHIN REACH. WCTM. REPORT TO ONCHENRY BARBOSA.
--- NOTE | 2020-02-11 16:56 | NUR ---
PT IS AOX3 WITH SOME CONFUSION. PT IS IMPULSIVE AND WILL STAND TO TRY TO REACH TRASH CAN OR GET BACK TO BED.PT IS A ONE PERSON TRANSFER AND COOOPERATIVE OF CARE. NO CHANGES NOTED TODAY WILL CONTINUE TO MONITOR.
[2020-02-12 05:55] LABS: International Normalized Ratio 2.14; Prothrombin Time Results 21.9 Sec (9.7-11.5)
--- NOTE | 2020-02-12 17:27 | NUR ---
NO ACUTE CHANGES THIS SHIFT. PATIENT AWAITING PLACEMENT.
[2020-02-13 05:14] LABS: International Normalized Ratio 2.3; Prothrombin Time Results 23.5 Sec (9.7-11.5)
[2020-02-13 05:58] LABS: Anion Gap 7 mmol/L (6-16); Blood Urea Nitrogen 22 mg/dL (8-24); Bun/Creatinine Ratio 25.6 (12.0-20.0); CO2, Blood 25 mmol/L (21-32); Calcium, Blood 8.1 mg/dL (8.5-10.1); Chloride, Blood 103 mmol/L (98-108); Creatinine, Blood 0.86 mg/dL (0.60-1.20); Glomerular Filtration Rate >60 (60-); Glucose, Blood 76 mg/dL (70-99); Potassium, Blood 4.1 mmol/L (3.5-5.5); Sodium, Blood 135 mmol/L (136-145)
--- NOTE | 2020-02-13 17:38 | NUR ---
NO ACUTE CHANGES THIS SHIFT. AWAITING PLACEMENT.
[2020-02-14 05:27] LABS: International Normalized Ratio 2.45; Prothrombin Time Results 24.9 Sec (9.7-11.5)
--- NOTE | 2020-02-14 20:18 | NUR ---
SHIFT SUMMARY- PT ALERT AND ORIENTED TO SELF. PT IS A 1PA TO THE BATHROOM WITH A FWW. PT HAS HAD NO C/O PAIN T/O THE DAY AND CONTINUES TO BE PLEASENTLY CONFUSED. PT SITTING UP IN BED WITH A CALL LIGHT IN REACH, BED ALARM FOR SAFETY.
[2020-02-15 05:35] LABS: International Normalized Ratio 2.4; Prothrombin Time Results 24.4 Sec (9.7-11.5)
--- NOTE | 2020-02-15 06:23 | NUR ---
SHIFT SUMMARY NO ACUTE CHANGES THIS SHIFT. VSS. AOX2. FOLLOWS DIRECTIONS & ANSWERS YES/NO QUESTIONS APPROPRIATE. DENIES N/V, DYSPNEA, OR PAIN. CALL LIGHT IN REACH, BED ALARM IN PLACE BECAUSE PT FORGETS TO USE CALL LIGHT & IS IMPULSIVE. AWAITING PLACEMENT. WCTM.
--- NOTE | 2020-02-15 15:39 | NUR ---
PATIENT HAS HAD UNEVENTFUL DAY. TIRED AND SLEEPING MOST OF THE SHIFT. BP SLIGHTLY LOW THIS AM SO ANTIHYPERTENSIVE HELD. ASYMTOMMATIC. NO ACUTE CHANGES TO REPORT OF AT THIS TIME. WILL CONTINUE TO MONITOR AND CARE FOR PATIENT NEEDED.
--- NOTE | 2020-02-16 04:22 | NUR ---
SHIFT SUMMARY NO ACUTE CHANGES THIS SHIFT. AOX2, SELF & PLACE. VSS. DENIES PAIN, N/V OR DYSPNEA. AWAITING GAURDIANSHIP & PLACEMENT. BANDAGES ON SKIN TEARS WERE CHANGED & ARE C/D/I. CALL LIGHT IN REACH & BED ALARM IN PLACE. WCTM.
[2020-02-16 05:11] LABS: International Normalized Ratio 2.44; Prothrombin Time Results 24.8 Sec (9.7-11.5)
--- NOTE | 2020-02-16 18:18 | NUR ---
SHIFT SUMMARY PATIENT DOES MOVE IMPULSIVELY. MOMENTS OF FORGETFULNESS. OCCASSIONALLY USES HIS CALL LIGHT APPROPRIATELY. SITTING IN CHAIR. INCONTINENT OF URINE.
[2020-02-17 04:53] LABS: International Normalized Ratio 2.47; Prothrombin Time Results 25.1 Sec (9.7-11.5)
--- NOTE | 2020-02-17 05:34 | NUR ---
SHIFT SUMMARY ASSUMMED CARE OF PT AT 1900. PT IS A/OX2 DENIES N/T IN EXTREMITES. HEART SOUNDS REGULAR, LUNG SOUNDS CLEAR, DENIES CP/SOB. PT ATTEMPTED TO LEAVE THE BED SEVERAL TIMES DURING THE NIGHT TO USE THE RESTROOM, PT IS CONTINENT/INCONTINENT. PT IS A 1P SBA FWW. NO ACUTE CHANGES NOTED T/O THE NIGHT. PT SLEPT DURING THE NIGHT. CALL LIGHT IN REACH, BED IN LOWEST POSTION, WILL CONTINUE TO MONITOR UNTIL DAYSHIFT NURSE ARRIVES.
--- NOTE | 2020-02-17 16:33 | NUR ---
SHIFT SUMMARY PATIENT DENIES PAIN, NAUSEA, AND SHORTNESS OF BREATH. PATIENT UP SBA IN ROOM. PATIENT EATING AND DRINKING WELL. PATIENT PLEASANT AND COOPERATIVE WITH CARE. PATIENT UP IN CHAIR FOR MEALS OR REALXING IN BED THIS SHIFT. CALL LIGHT IN REACH.
[2020-02-18 05:11] LABS: International Normalized Ratio 2.3; Prothrombin Time Results 23.5 Sec (9.7-11.5)
--- NOTE | 2020-02-18 05:26 | NUR ---
SHIFT SUMMARY ASSUMED CARE OF PT AT 1900. PT IS A/OX3, DENIES N/T IN EXTREMITES. HEART SOUNDS REGULAR, LUNG SOUNDS CLEAR WITH DIMINISHED BASES, DENIES CP/SOB AT THIS TIME. PT WAS CON/INCON T/O THE NIGHT. PT DID NOT USE THE CALL LIGHT APPROPIATELY. NO ACUTE EVENTS DURING THE NIGHT. PT SLEPT MOST OF THE NIGHT. CALL LIGHT IN REACH, BED IN LOWEST POSITION, WILL CONTINUE TO MONITOR UNTIL DAYSHIFT NURSE ARRIVES.
--- NOTE | 2020-02-18 16:46 | NUR ---
SHIFT SUMMARY PATIENT DENIES PAIN, NAUSEA, AND SHORTNESS OF BREATH. PATIENT UP SBA IN ROOM. PATIENT UP IN CHAIR OR WATCHING TV IN BED THIS SHIFT. PATIENT EATING AND DRINKING WELL. PATIENT PENDING DISCHARGE TO [facility]. CALL LIGHT IN REACH.
[2020-02-19 05:21] LABS: International Normalized Ratio 2.07; Prothrombin Time Results 21.3 Sec (9.7-11.5)
--- NOTE | 2020-02-19 18:11 | NUR ---
SHIFT SUMMARY. A&OX1, PLEASANT AND COOPERATIVE WITH CARE. PT DENIES PAIN, SOB, N/V. GOOD MEAL INTAKE. PT SHOWERED BY SHIPPING ASSISTANT TODAY. AWAITING CRISTALAN TO COMPLETE INTAKE PAPERWORK FOR DISCHARGE. NO NEW CHANGES OR CONCERNS.
--- NOTE | 2020-02-20 04:34 | NUR ---
SUMMARY NO ISSUES NOTED. PT HAS SLEPT WELL T/O SHIFT. PT CURRENTLY SLEEPING AND BREATHING EASY. CALL LIGHT ON AND BED ALARM ON.
[2020-02-20 05:10] LABS: International Normalized Ratio 1.79; Prothrombin Time Results 18.5 Sec (9.7-11.5)
--- NOTE | 2020-02-20 17:08 | NUR ---
SHIFT SUMMARY. PT DENIES PAIN, SOB, N/V. GOOD MEAL INTAKE. NO NEW CHANGES OR CONCERNS.
[2020-02-21 05:21] LABS: International Normalized Ratio 1.72; Prothrombin Time Results 17.8 Sec (9.7-11.5)
[2020-02-21 05:35] LABS: Anion Gap 7 mmol/L (6-16); Blood Urea Nitrogen 23 mg/dL (8-24); Bun/Creatinine Ratio 28.2 (12.0-20.0); CO2, Blood 24 mmol/L (21-32); Calcium, Blood 8.2 mg/dL (8.5-10.1); Chloride, Blood 107 mmol/L (98-108); Creatinine, Blood 0.82 mg/dL (0.60-1.20); Glomerular Filtration Rate >60 (60-); Glucose, Blood 75 mg/dL (70-99); Potassium, Blood 4.2 mmol/L (3.5-5.5); Sodium, Blood 138 mmol/L (136-145)
--- NOTE | 2020-02-21 06:36 | NUR ---
SUMMARY NO ISSUES NOTED. PT SLEPT T/O SHIFT. PT CURRENTLY SLEEPING AND IN NO DISTRESS. CALL LIGHT IN REACH AND BED ALARM ON.
[2020-02-21] MEDS ORDERED: LISI5 PO (11:17)
[2020-02-21] MEDS ORDERED: Seroquel Xr50 MG PO (11:17)
--- NOTE | 2020-02-21 13:02 | NUR ---
DISCHARGE PT DISCHARGED TO [facility]. DISCHARGE INSTRUCTIONS MEDICATIONS FAXED TO [facility] BY LEAD WEB APPLICATION DEVELOPER. THIS RN EXPLAINED DISCHARGE INSTRUCTIONS TO PT. PT TRANSFERRED TO [facility]. BELONGINGS WITH PT.
== END 2020-02-21 12:41 | disposition home or self-care (01) | DRG 292 ==
LOC: ER 14:18 → MEDS 18:05 → ENPENDDIS 02-21 09:59 → MEDS 02-21 12:41
PROVIDERS: Emergency Medicine; Family Medicine; Internal Medicine; Internal Medicine Gastroenterology; Pharmacist; Student in an Organized Health Care Education/Training Program; ADMIT Internal Medicine
DX: I50.43 Acute on chronic combined systolic (congestive) and diastolic (congestive) heart failure (principal); E44.0 Moderate protein-calorie malnutrition; N40.0 Benign prostatic hyperplasia without lower urinary tract symptoms; E78.00 Pure hypercholesterolemia, unspecified; I35.0 Nonrheumatic aortic (valve) stenosis; K22.70 Barrett's esophagus without dysplasia; Z95.2 Presence of prosthetic heart valve; Z79.01 Long term (current) use of anticoagulants; G30.9 Alzheimer's disease, unspecified; F02.80 Dementia in other diseases classified elsewhere, unspecified severity, without behavioral disturbance, psychotic disturbance, mood disturbance, and anxiety; D69.6 Thrombocytopenia, unspecified; E80.6 Other disorders of bilirubin metabolism; E88.09 Other disorders of plasma-protein metabolism, not elsewhere classified; R62.7 Adult failure to thrive; E78.5 Hyperlipidemia, unspecified; I27.20 Pulmonary hypertension, unspecified; Z68.20 Body mass index [BMI] 20.0-20.9, adult; K21.9 Gastro-esophageal reflux disease without esophagitis; K74.60 Unspecified cirrhosis of liver; V89.0XXA Person injured in unspecified motor-vehicle accident, nontraffic, initial encounter; Y93.9 Activity, unspecified; Y92.512 Supermarket, store or market as the place of occurrence of the external cause
CPT/HCPCS: 36415; 51798; 70450; 71045; 71046; 80048; 80053; 81001; 82607; 82746; 83735; 83880; 84484; 85025; 85610; 87086; 92526; 92610; 93005; 93010; 96374; 97110; 97112; 97116; 97162; 97166; 97530; 97535; 99285-25; A9270; C8923; J1650; J1940

== ENCOUNTER → 2020-02-24 | Outpatient (CLI) | payer MEDICARE ==
[~2020-02-24] MED LIST changes: +COENZYME Q-10 PO; +Daily Multiple1 EACH PO; +FISH OIL PO; +GLUCOSAMINE CHONDROI PO; +LISI5 PO; +LOVAZA1 GM PO; +Prevacid Soluta30 MG PO; +Seroquel Xr50 MG PO
[2020-02-24 12:14] LABS: Hematocrit 39.9 % (37.0-53.0); Hemoglobin 13.4 g/dL (13.5-17.5); Mean Corpuscular HGB 33.4 pg (26.0-34.0); Mean Corpuscular HGB Conc 33.6 g/dL (31.5-36.5); Mean Corpuscular Volume 100 fL (80-100); Mean Platelet Volume 9.8 fL (9.1-12.4); Platelet Count 144 K/mm3 (150-400); RDW Coefficient Variation 14.6 % (11.7-14.2); RDW Standard Deviation 54.4 fL (35.1-46.3); Red Blood Cell Count 4.01 M/mm3 (4.30-5.90); White Blood Cell Count 4.41 K/mm3 (4.00-11.30)
[2020-02-24 12:28] LABS: Alanine Aminotransfer (ALT/SGP 51 U/L (12-78); Albumin/Globulin Ratio 0.8 (0.8-1.8); Alk Phos 181 U/L (50-136); Anion Gap 4 mmol/L (6-16); Aspartate Aminotrans (AST/SGOT 56 U/L (12-37); Bilirubin, Total 1.1 mg/dL (0.1-1.0); Blood Urea Nitrogen 31 mg/dL (8-24); Bun/Creatinine Ratio 40.6 (12.0-20.0); CO2, Blood 27 mmol/L (21-32); Calcium, Blood 8.3 mg/dL (8.5-10.1); Chloride, Blood 111 mmol/L (98-108); Creatinine, Blood 0.76 mg/dL (0.60-1.20); Glomerular Filtration Rate >60 (60-); Glucose, Blood 84 mg/dL (70-99); Potassium, Blood 4.5 mmol/L (3.5-5.5); Sodium, Blood 142 mmol/L (136-145)
== END | disposition home or self-care (01) ==
LOC: LAB SHORT 11:29 → LAB 11:29
PROVIDERS: Hospitalist
DX: I50.33 Acute on chronic diastolic (congestive) heart failure (principal)
CPT/HCPCS: 80053; 85027

== ENCOUNTER 2020-07-04 10:50 | Emergency (ER) | payer MEDICARE ==
[~2020-07-04] VITALS: Ht 180.3 cm; Wt 74.8 kg
[2020-07-04] MEDS ORDERED: Coumadin2 MG PO (11:03)
[2020-07-04] MEDS ORDERED: FURO20 PO (11:04)
[2020-07-04 12:31] LABS: BASOPHILS ABSOLUTE AUTO 0.01 K/mm3 (0.00-0.23); BASOPHILS PERCENT AUTO 0 % (0-2); EOSINOPHILS ABSOLUTE AUTO 0.24 K/mm3 (0.00-0.68); EOSINOPHILS PERCENT AUTO 5 % (0-6); Hematocrit 37.9 % (37.0-53.0); Hemoglobin 12.3 g/dL (13.5-17.5); IMMATURE GRAN ABSOLUTE AUTO 0.01 K/mm3 (0.00-0.10); IMMATURE GRAN PERCENT AUTO 0 % (0-1); LYMPHOCYTES ABSOLUTE AUTO 0.67 K/mm3 (0.84-5.20); LYMPHOCYTES PERCENT AUTO 13 % (21-46); MONOCYTES ABSOLUTE AUTO 0.49 K/mm3 (0.16-1.47); MONOCYTES PERCENT AUTO 10 % (4-13); Mean Corpuscular HGB 32.5 pg (26.0-34.0); Mean Corpuscular HGB Conc 32.5 g/dL (31.5-36.5); Mean Corpuscular Volume 100 fL (80-100); Mean Platelet Volume 10.7 fL (9.1-12.4); NEUTROPHILS ABSOLUTE AUTO 3.62 K/mm3 (1.96-9.15); NEUTROPHILS PERCENT AUTO 72 % (41-73); Platelet Count 125 K/mm3 (150-400); RDW Coefficient Variation 15.8 % (11.7-14.2); RDW Standard Deviation 58.4 fL (35.1-46.3); Red Blood Cell Count 3.78 M/mm3 (4.30-5.90); White Blood Cell Count 5.04 K/mm3 (4.00-11.30)
[2020-07-04 12:39] LABS: International Normalized Ratio 3.27; Prothrombin Time Results 32.7 Sec (9.7-11.5)
== END 2020-07-04 14:21 | disposition home or self-care (01) ==
LOC: ER 10:50
PROVIDERS: Emergency Medicine
DX: R29.810 Facial weakness (principal); G30.9 Alzheimer's disease, unspecified; F02.80 Dementia in other diseases classified elsewhere, unspecified severity, without behavioral disturbance, psychotic disturbance, mood disturbance, and anxiety; I25.10 Atherosclerotic heart disease of native coronary artery without angina pectoris; I50.9 Heart failure, unspecified; I11.0 Hypertensive heart disease with heart failure; I48.91 Unspecified atrial fibrillation; N40.0 Benign prostatic hyperplasia without lower urinary tract symptoms; Z95.4 Presence of other heart-valve replacement; Z79.01 Long term (current) use of anticoagulants; Z88.0 Allergy status to penicillin; Z88.8 Allergy status to other drugs, medicaments and biological substances; Z79.899 Other long term (current) drug therapy
CPT/HCPCS: 70450; 85025; 85610; 99284-25

== ENCOUNTER 2020-07-25 14:01 | Emergency (ER) | payer MEDICARE ==
[~2020-07-25] VITALS: Ht 180.3 cm; Wt 77.1 kg
[~2020-07-25 14:01] MED LIST changes: +Coumadin2 MG PO; +FURO20 PO
[2020-07-25 15:02] LABS: BASOPHILS ABSOLUTE AUTO 0.01 K/mm3 (0.00-0.23); BASOPHILS PERCENT AUTO 0 % (0-2); EOSINOPHILS ABSOLUTE AUTO 0.09 K/mm3 (0.00-0.68); EOSINOPHILS PERCENT AUTO 2 % (0-6); Hematocrit 39.5 % (37.0-53.0); Hemoglobin 12.7 g/dL (13.5-17.5); IMMATURE GRAN ABSOLUTE AUTO 0.01 K/mm3 (0.00-0.10); IMMATURE GRAN PERCENT AUTO 0 % (0-1); LYMPHOCYTES ABSOLUTE AUTO 0.59 K/mm3 (0.84-5.20); LYMPHOCYTES PERCENT AUTO 13 % (21-46); MONOCYTES ABSOLUTE AUTO 0.54 K/mm3 (0.16-1.47); MONOCYTES PERCENT AUTO 12 % (4-13); Mean Corpuscular HGB 32.3 pg (26.0-34.0); Mean Corpuscular HGB Conc 32.2 g/dL (31.5-36.5); Mean Corpuscular Volume 101 fL (80-100); Mean Platelet Volume 10.5 fL (9.1-12.4); NEUTROPHILS ABSOLUTE AUTO 3.17 K/mm3 (1.96-9.15); NEUTROPHILS PERCENT AUTO 72 % (41-73); Platelet Count 134 K/mm3 (150-400); RDW Coefficient Variation 16.4 % (11.7-14.2); RDW Standard Deviation 61.4 fL (35.1-46.3); Red Blood Cell Count 3.93 M/mm3 (4.30-5.90); White Blood Cell Count 4.41 K/mm3 (4.00-11.30)
[2020-07-25 15:22] LABS: Alanine Aminotransfer (ALT/SGP 65 U/L (12-78); Albumin, Blood 3.1 g/dL (3.4-5.0); Albumin/Globulin Ratio 0.7 (0.8-1.8); Alk Phos 135 U/L (50-136); Anion Gap 7 mmol/L (6-16); Aspartate Aminotrans (AST/SGOT 67 U/L (12-37); Bilirubin, Total 1.1 mg/dL (0.1-1.0); Blood Urea Nitrogen 43 mg/dL (8-24); Bun/Creatinine Ratio 50.6 (12.0-20.0); CO2, Blood 24 mmol/L (21-32); Calcium, Blood 8.7 mg/dL (8.5-10.1); Chloride, Blood 109 mmol/L (98-108); Creatinine, Blood 0.85 mg/dL (0.60-1.20); Globulin, Blood 4.7 g/dL (2.2-4.0); Glomerular Filtration Rate >60 (60-); Glucose, Blood 111 mg/dL (70-99); Potassium, Blood 4.4 mmol/L (3.5-5.5); Sodium, Blood 140 mmol/L (136-145); Total Protein, Blood 7.8 g/dL (6.4-8.2); Troponin I 0.059 ng/mL (0.000-0.040)
[2020-07-25 15:28] LABS: PCO2 Arterial 45.4 mmHg (35-45); PO2 Arterial 79.3 mmHg (80-100); pH Blood Arterial 7.36 (7.35-7.45)
[2020-07-25 15:42] LABS: International Normalized Ratio 2.95; Prothrombin Time Results 29.7 Sec (9.7-11.5)
== END 2020-07-25 17:25 | disposition home or self-care (01) ==
LOC: ER 14:01
PROVIDERS: Emergency Medicine
DX: I50.9 Heart failure, unspecified (principal); G30.9 Alzheimer's disease, unspecified; F02.80 Dementia in other diseases classified elsewhere, unspecified severity, without behavioral disturbance, psychotic disturbance, mood disturbance, and anxiety; I48.20 Chronic atrial fibrillation, unspecified; E78.5 Hyperlipidemia, unspecified; I25.10 Atherosclerotic heart disease of native coronary artery without angina pectoris; Z79.01 Long term (current) use of anticoagulants; Z79.899 Other long term (current) drug therapy
CPT/HCPCS: 36415; 36600; 71045; 80053; 82803; 83880; 84484; 85025; 85610; 93005; 93010; 99285-25